=== PATIENT | female | born 1985 | race Caucasian/White ===

== ENCOUNTER 2018-01-21 20:32 | Outpatient (CLI) | payer MEDICAID ==
[2018-01-21 21:51] LABS: MICROSCOPIC INDICATED
== END 2018-01-21 23:23 | disposition home or self-care (01) ==
LOC: MERGE 20:32 → LDOP 20:32
PROVIDERS: ATTEND Obstetrics & Gynecology
DX: O26.892 Other specified pregnancy related conditions, second trimester (principal); R10.9 Unspecified abdominal pain; Z3A.27 27 weeks gestation of pregnancy
CPT/HCPCS: 36415; 59025; 81001; 82731; 87086; 99211; G0463

== ENCOUNTER 2018-03-07 00:24 | Outpatient (CLI) | payer MEDICAID ==
[~2018-03-07] VITALS: Ht 162.6 cm; Wt 106.8 kg
[2018-03-07 00:38] VITALS: BP 137/65
[2018-03-07 01:22] LABS: MICROSCOPIC INDICATED
[2018-03-07 01:28] LABS: CULTURE INDICATED? YES
[2018-03-07 02:22] LABS: BASOPHILS # (AUTO) 0.06 x10^3/uL (0-0.1); BASOPHILS % (AUTO) 1 % (0-1); EOSINOPHILS % (AUTO) 2 % (1-7); LYMPHOCYTES # (AUTO) 2.78 x10^3/uL (1-3.4); LYMPHOCYTES % (AUTO) 23 % (22-44); MD NO; MEAN CORPUSCULAR HEMOGLOBIN 28.2 pg (27.0-34.8); MEAN CORPUSCULAR HGB CONC 33.1 g/dL (32.4-35.8); MEAN CORPUSCULAR VOLUME 85.2 fL (80-100); MEAN PLATELET VOLUME 9.2 fL (7.4-10.4); MONOCYTES # (AUTO) 0.57 x10^3/uL (0.2-0.8); MONOCYTES % (AUTO) 5 % (2-9); NEUTROPHILS # (AUTO) 8.57 x10^3/uL (1.8-6.8); NEUTROPHILS % (AUTO) 70 % (42-75); PLATELET COUNT 186 x10^3/uL (130-400); RED BLOOD COUNT 3.97 x10^6/uL (3.82-5.3); RED CELL DISTRIBUTION WIDTH 13.8 % (9.6-15.2)
[2018-03-07 02:30] LABS: ALBUMIN 2.5 g/dL (3.4-5.0); ANION GAP 11 mmol/L (5-15); CALCIUM 8.2 mg/dL (8.5-10.1); CHLORIDE 109 mmol/L (98-107)
[2018-03-07 02:35] LABS: ALANINE AMINOTRANSFERASE 12 U/L (12-78); ALKALINE PHOSPHATASE 78 U/L (45-117); BILIRUBIN,TOTAL 0.4 mg/dL (0.2-1.0); CREATININE 0.49 mg/dL (0.55-1.02); TOTAL PROTEIN 6.1 g/dL (6.4-8.2)
[2018-03-07] MEDS ORDERED: GLYB5TAB3 PO (03:43)
[2018-03-07] MEDS ORDERED: LEVO200T5 PO (03:44)
== END 2018-03-07 03:50 | disposition home or self-care (01) ==
LOC: LDOP 00:24
PROVIDERS: ATTEND Obstetrics & Gynecology
DX: O26.893 Other specified pregnancy related conditions, third trimester (principal); Z3A.34 34 weeks gestation of pregnancy; R10.9 Unspecified abdominal pain
CPT/HCPCS: 36415; 59025; 76700; 76819; 80053; 81001; 85025; 87086; 99211; G0463

== ENCOUNTER 2018-03-15 10:03 | Outpatient (CLI) | payer MEDICAID ==
[~2018-03-15 10:03] MED LIST: GLYB5TAB3 PO; LEVO200T5 PO
[2018-03-15 10:44] LABS: MICROSCOPIC INDICATED
== END 2018-03-15 11:27 | disposition home or self-care (01) ==
LOC: LDOP 10:03
PROVIDERS: ATTEND Obstetrics & Gynecology
DX: O26.893 Other specified pregnancy related conditions, third trimester (principal); M54.9 Dorsalgia, unspecified; Z3A.35 35 weeks gestation of pregnancy
CPT/HCPCS: 59025; 81001; 87086; 99211; G0463

== ENCOUNTER 2018-04-11 05:30 | Inpatient (IN) | payer OTHER, MEDICAID ==
[~2018-04-11] VITALS: Ht 162.6 cm; Wt 113.6 kg
[2018-04-11] MEDS ORDERED: OXYTOCIN 30U/ 0.9% NaCL 500ML 500 ML IV SCH (05:33)
[2018-04-11] MEDS ORDERED: LACTATED RINGERS 1,000 ML IV SCH ×2 (05:33→05:45)
[2018-04-11 05:37] VITALS: BP 130/78
[2018-04-11] MEDS ORDERED: PREN-3 PO (05:48)
[2018-04-11] MEDS ORDERED: SODIUM CITRATE/CITRIC ACID 30 ML UDC PO ONE (06:00)
[2018-04-11] MEDS ORDERED: METOCLOPRAMIDE 5 MG/ML, 2ML IV ONE (06:00)
[2018-04-11] MEDS ORDERED: LACTATED RINGERS 1,000 ML IVBOLUS ONE (06:00)
[2018-04-11] MEDS ORDERED: NEWBORN KIT ONE (06:07)
[2018-04-11 06:09] LABS: BASOPHILS # (AUTO) 0.01 x10^3/uL (0-0.1); BASOPHILS % (AUTO) 0 % (0-1); EOSINOPHILS # (AUTO) 0.08 x10^3/uL (0-0.4); EOSINOPHILS % (AUTO) 1 % (1-7); LYMPHOCYTES # (AUTO) 3.37 x10^3/uL (1-3.4); LYMPHOCYTES % (AUTO) 28 % (22-44); MD NO; MEAN CORPUSCULAR HEMOGLOBIN 29.2 pg (27.0-34.8); MEAN CORPUSCULAR HGB CONC 34.6 g/dL (32.4-35.8); MEAN CORPUSCULAR VOLUME 84.5 fL (80-100); MEAN PLATELET VOLUME 10.1 fL (7.4-10.4); MONOCYTES # (AUTO) 0.59 x10^3/uL (0.2-0.8); MONOCYTES % (AUTO) 5 % (2-9); NEUTROPHILS # (AUTO) 8.12 x10^3/uL (1.8-6.8); NEUTROPHILS % (AUTO) 67 % (42-75); PLATELET COUNT 190 x10^3/uL (130-400); RED BLOOD COUNT 4.13 x10^6/uL (3.82-5.3); RED CELL DISTRIBUTION WIDTH 13.4 % (9.6-15.2)
[2018-04-11] MEDS ORDERED: METOCLOPRAMIDE 5 MG/ML, 2ML ONE (06:51)
[2018-04-11] MEDS ORDERED: SODIUM CITRATE/CITRIC ACID 30 ML UDC ONE (06:51)
[2018-04-11] MEDS ORDERED: morphine SULFATE/PF 0.5 MG/ML, 10ML ONE (08:26)
[2018-04-11] MEDS ORDERED: PHENYLEPHRINE 10 MG/ML ONE (08:42)
[2018-04-11] MEDS ORDERED: EPHEDRINE 50 MG/ML, 1ML ONE (08:42)
[2018-04-11] MEDS ORDERED: OXYTOCIN 10 UNITS/ML, 1ML ONE (08:42)
[2018-04-11] MEDS ORDERED: WATER-INJECTION,STERILE 10 ML IV ONE (08:42)
[2018-04-11] MEDS ORDERED: ONDANSETRON 2MG/ML, 2ML ONE (08:42)
[2018-04-11] MEDS ORDERED: CEFAZOLIN 1,000 MG ONE (08:42)
[2018-04-11] MEDS: LACTATED RINGERS 1,000 ML IV SCH ×4 (09:14→19:55)
[2018-04-11] MEDS ORDERED: OXYTOCIN 30U/ 0.9% NaCL 500ML 500 ML ONE (09:24)
[2018-04-11] MEDS ORDERED: morphine SULFATE 10 MG/ML, 1ML IVPush PRN ×2 (09:30)
[2018-04-11] MEDS ORDERED: MISOPROSTOL 200 MCG TABLET PR PRN (09:30)
[2018-04-11] MEDS ORDERED: IBUPROFEN 800 MG TABLET PO PRN (09:30)
[2018-04-11] MEDS ORDERED: METHYLERGONOVINE 0.2 MG/ML IM PRN (09:30)
[2018-04-11] MEDS ORDERED: MEPERIDINE/PF 50 MG/ML IVPush PRN (09:30)
[2018-04-11] MEDS ORDERED: MEPERIDINE/PF 100 MG/ML IVPush PRN (09:30)
[2018-04-11] MEDS ORDERED: ONDANSETRON 2MG/ML, 2ML IV PRN (09:30)
[2018-04-11] MEDS ORDERED: ACETAMINOPHEN 325 MG TABLET PO PRN (09:30)
[2018-04-11] MEDS ORDERED: KETOROLAC 30 MG/1 ML ONE (10:02)
[2018-04-11] MEDS: KETOROLAC 30 MG/1 ML IV SCH ×3 (10:04→21:30)
[2018-04-11] MEDS: OXYTOCIN 30U/ 0.9% NaCL 500ML 500 ML IV SCH ×2 (10:47→19:14)
[2018-04-11 12:00] VITALS: BP 99/61
[2018-04-11] MEDS: OXYcodone/APAP 5/325MG TABLET PO PRN ×4 (12:41→21:51)
[2018-04-11 14:53] LABS: CHLORIDE 109 mmol/L (98-107)
[2018-04-11 15:00] LABS: ALANINE AMINOTRANSFERASE 10 U/L (12-78); ALKALINE PHOSPHATASE 99 U/L (45-117); ANION GAP 8 mmol/L (5-15); BILIRUBIN,TOTAL 0.4 mg/dL (0.2-1.0); CALCIUM 7.4 mg/dL (8.5-10.1)
[2018-04-11 15:10] LABS: MEAN CORPUSCULAR HEMOGLOBIN 29.2 pg (27.0-34.8); MEAN CORPUSCULAR HGB CONC 34.2 g/dL (32.4-35.8); MEAN CORPUSCULAR VOLUME 85.5 fL (80-100); MEAN PLATELET VOLUME 10.4 fL (7.4-10.4); PLATELET COUNT 158 x10^3/uL (130-400); RED BLOOD COUNT 3.33 x10^6/uL (3.82-5.3); RED CELL DISTRIBUTION WIDTH 13.5 % (9.6-15.2)
[2018-04-11 15:11] LABS: BASOPHILS # (AUTO) 0.02 x10^3/uL (0-0.1); BASOPHILS % (AUTO) 0 % (0-1); EOSINOPHILS # (AUTO) 0.07 x10^3/uL (0-0.4); EOSINOPHILS % (AUTO) 1 % (1-7); LYMPHOCYTES # (AUTO) 1.85 x10^3/uL (1-3.4); LYMPHOCYTES % (AUTO) 15 % (22-44); MD SCAN; MONOCYTES # (AUTO) 0.61 x10^3/uL (0.2-0.8); MONOCYTES % (AUTO) 5 % (2-9); NEUTROPHILS # (AUTO) 9.86 x10^3/uL (1.8-6.8); NEUTROPHILS % (AUTO) 80 % (42-75)
[2018-04-11 15:58] VITALS: BP 105/67
[2018-04-11] MEDS ORDERED: LACTATED RINGERS 500 ML IVBOLUS ONE (16:00)
[2018-04-11 18:51] LABS: BASOPHILS # (AUTO) 0.01 x10^3/uL (0-0.1); BASOPHILS % (AUTO) 0 % (0-1); EOSINOPHILS # (AUTO) 0.07 x10^3/uL (0-0.4); EOSINOPHILS % (AUTO) 1 % (1-7); LYMPHOCYTES # (AUTO) 2.19 x10^3/uL (1-3.4); LYMPHOCYTES % (AUTO) 20 % (22-44); MD NO; MEAN CORPUSCULAR HEMOGLOBIN 28.9 pg (27.0-34.8); MEAN CORPUSCULAR HGB CONC 33.8 g/dL (32.4-35.8); MEAN CORPUSCULAR VOLUME 85.5 fL (80-100); MEAN PLATELET VOLUME 10.1 fL (7.4-10.4); MONOCYTES # (AUTO) 0.53 x10^3/uL (0.2-0.8); MONOCYTES % (AUTO) 5 % (2-9); NEUTROPHILS % (AUTO) 74 % (42-75); PLATELET COUNT 149 x10^3/uL (130-400); RED BLOOD COUNT 3.13 x10^6/uL (3.82-5.3); RED CELL DISTRIBUTION WIDTH 13.6 % (9.6-15.2)
[2018-04-11 19:20] VITALS: BP 107/67
[2018-04-11] MEDS ORDERED: RHOGAM FROM BLOOD BANK 1 NOTE EA IM/IV ONE (22:00)
[2018-04-12] VITALS: BP 94/59
[2018-04-12] MEDS: OXYcodone/APAP 5/325MG TABLET PO PRN ×4 (03:01→20:27)
[2018-04-12] MEDS: KETOROLAC 30 MG/1 ML IV SCH ×4 (03:30→18:28)
[2018-04-12 04:30] VITALS: BP 106/68
[2018-04-12] MEDS: OXYTOCIN 30U/ 0.9% NaCL 500ML 500 ML IV SCH ×2 (05:14→20:10)
[2018-04-12] MEDS: LACTATED RINGERS 1,000 ML IV SCH ×4 (05:14→20:10)
[2018-04-12 06:20] LABS: BASOPHILS # (AUTO) 0.03 x10^3/uL (0-0.1); BASOPHILS % (AUTO) 0 % (0-1); EOSINOPHILS # (AUTO) 0.07 x10^3/uL (0-0.4); EOSINOPHILS % (AUTO) 1 % (1-7); LYMPHOCYTES # (AUTO) 2.15 x10^3/uL (1-3.4); LYMPHOCYTES % (AUTO) 25 % (22-44); MD NO; MEAN CORPUSCULAR HEMOGLOBIN 28.9 pg (27.0-34.8); MEAN CORPUSCULAR HGB CONC 33.6 g/dL (32.4-35.8); MONOCYTES # (AUTO) 0.42 x10^3/uL (0.2-0.8); MONOCYTES % (AUTO) 5 % (2-9); NEUTROPHILS # (AUTO) 6.06 x10^3/uL (1.8-6.8); NEUTROPHILS % (AUTO) 70 % (42-75); PLATELET COUNT 149 x10^3/uL (130-400); RED BLOOD COUNT 3.15 x10^6/uL (3.82-5.3); RED CELL DISTRIBUTION WIDTH 13.8 % (9.6-15.2)
[2018-04-12 06:30] LABS: ALANINE AMINOTRANSFERASE 11 U/L (12-78); ANION GAP 8 mmol/L (5-15); CALCIUM 7.8 mg/dL (8.5-10.1); CHLORIDE 110 mmol/L (98-107); CREATININE 0.64 mg/dL (0.55-1.02)
[2018-04-12 06:32] LABS: ALKALINE PHOSPHATASE 99 U/L (45-117); BILIRUBIN,TOTAL 0.3 mg/dL (0.2-1.0); TOTAL PROTEIN 5.1 g/dL (6.4-8.2)
[2018-04-12 07:30] VITALS: BP 101/66
[2018-04-12] MEDS: PRENATAL VIT/IRON/FA 1 EACH TABLET PO SCH (10:43)
[2018-04-12] MEDS: DOCUSATE 100 MG CAPSULE PO PRN ×2 (10:43→20:27)
[2018-04-12 19:29] VITALS: BP 99/65
[2018-04-13] MEDS: KETOROLAC 30 MG/1 ML IV SCH (00:10)
[2018-04-13] MEDS: OXYTOCIN 30U/ 0.9% NaCL 500ML 500 ML IV SCH ×2 (01:14→21:14)
[2018-04-13] MEDS: LACTATED RINGERS 1,000 ML IV SCH ×4 (01:14→21:14)
[2018-04-13] MEDS: OXYcodone/APAP 5/325MG TABLET PO PRN ×4 (04:49→21:09)
[2018-04-13] MEDS: PRENATAL VIT/IRON/FA 1 EACH TABLET PO SCH (07:23)
[2018-04-13] MEDS: DOCUSATE 100 MG CAPSULE PO PRN ×2 (07:23→21:09)
[2018-04-13] MEDS: LEVOTHYROXINE 200 MCG TABLET PO SCH (07:24)
[2018-04-13 07:30] VITALS: BP 115/74
[2018-04-13 19:42] VITALS: BP 110/68
[2018-04-14] MEDS: LACTATED RINGERS 1,000 ML IV SCH ×3 (01:14→09:14)
[2018-04-14] MEDS: OXYcodone/APAP 5/325MG TABLET PO PRN ×2 (01:29→06:23)
[2018-04-14] MEDS: LEVOTHYROXINE 200 MCG TABLET PO SCH (06:20)
[2018-04-14] MEDS: OXYTOCIN 30U/ 0.9% NaCL 500ML 500 ML IV SCH (07:14)
[2018-04-14 07:30] VITALS: BP 119/76
[2018-04-14] MEDS: DOCUSATE 100 MG CAPSULE PO PRN (09:21)
[2018-04-14] MEDS: PRENATAL VIT/IRON/FA 1 EACH TABLET PO SCH (09:21)
[2018-04-14] MEDS ORDERED: OXYC-302 PO (12:00)
[2018-04-14] MEDS ORDERED: IBUP-1222 PO (12:00)
== END 2018-04-14 12:56 | disposition home or self-care (01) | DRG 787 ==
LOC: LDIP 05:30 → 2NW 11:07
PROVIDERS: ADMIT Obstetrics & Gynecology; ATTEND Obstetrics & Gynecology
PROC: 10D00Z1 Extraction of Products of Conception, Low, Open Approach (ICD-10-PCS; principal; 2018-04-11)
DX: O99.284 Endocrine, nutritional and metabolic diseases complicating childbirth (principal); Z68.41 Body mass index [BMI] 40.0-44.9, adult; O24.429 Gestational diabetes mellitus in childbirth, unspecified control; O99.214 Obesity complicating childbirth; E03.9 Hypothyroidism, unspecified; O36.63X0 Maternal care for excessive fetal growth, third trimester, not applicable or unspecified; R33.8 Other retention of urine; O99.844 Bariatric surgery status complicating childbirth; O90.89 Other complications of the puerperium, not elsewhere classified; Z37.0 Single live birth; Z3A.39 39 weeks gestation of pregnancy; Z90.49 Acquired absence of other specified parts of digestive tract; Z83.3 Family history of diabetes mellitus; Z82.49 Family history of ischemic heart disease and other diseases of the circulatory system
CPT/HCPCS: 36415; J2790; 80053; 82803; 82962; 85025; 85461; 86850; 86900; G0378; J0690; J1885; J2274; J2405; J7120; J2370; J2590; J2765